=== PATIENT | male | born 1960 | race Caucasian/White ===

== ENCOUNTER 2020-11-22 04:18 | Outpatient (CLI) | payer OTHER, SELFPAY ==
[2020-11-22 12:39] LABS: HCT 46.5 % (40.0-50.0); MCH 32.6 pg (27.0-33.0); MCHC 34.4 % (32.0-36.0); MCV 94.7 fL (80-95); MPV 10.8 fL (8.0-11.0); Platelet Count 247 10^3/uL (130-400); RBC 4.91 10^6/uL (4.36-5.78); RDW 11.4 % (11.8-14.1); RDW-SD 39.5 fL
[2020-11-22 13:05] LABS: Hemoglobin A1C 5.4 % (<5.7)
[2020-11-22 13:29] LABS: ALT 67 U/L (16-63); AST 29 U/L (15-37); Albumin 3.8 g/dL (3.4-5.0); Alkaline Phosphatase 68 U/L (46-116); BUN 14 mg/dL (7-18); Bilirubin, Total 0.6 mg/dL (0.2-1.0); CREATININE 0.8 mg/dL (0.70-1.30); Calcium 8.7 mg/dL (8.5-10.1); Calculated LDL 155 mg/dL (<100); Chloride 105 mmol/L (98-107); Cholesterol 239 mg/dL (<200); Ferritin 250 ng/mL (26-388); Glucose 110 mg/dL (74-106); HDL Cholesterol 78 mg/dL (40-60); Potassium 4.3 mmol/L (3.5-5.1); Sodium 140 mmol/L (136-145); Total Protein 7.2 g/dL (6.4-8.2); Triglyceride 34 mg/dL (<150)
[2020-11-22 22:11] LABS: PSA, Screening 1.6 ng/mL (0.0-3.5)
[2020-11-23 09:42] LABS: Transferrin 200 mg/dL (201-352)
== END 2020-11-22 04:19 | disposition home or self-care (01) ==
PROVIDERS: PCP Neuromusculoskeletal Medicine & OMM; Visit Provider Neuromusculoskeletal Medicine & OMM
DX: Z00.00 Encounter for general adult medical examination without abnormal findings (principal); R10.9 Unspecified abdominal pain; E78.5 Hyperlipidemia, unspecified; M25.561 Pain in right knee; R73.9 Hyperglycemia, unspecified; Z82.49 Family history of ischemic heart disease and other diseases of the circulatory system; Z12.5 Encounter for screening for malignant neoplasm of prostate
CPT/HCPCS: 36415; 80053; 80061; 84153; 85027; 82728; 83036; 84466

== ENCOUNTER 2020-12-09 02:59 | Outpatient (CLI) | payer OTHER, SELFPAY ==
[2020-12-09 12:28] LABS: ESR 3 mm//hr (0-20)
[2020-12-09 16:47] LABS: CRP, High Sensitivity 0.94 mg/L (See Note)
[2020-12-10 09:09] LABS: Cyclic Citrullinated Peptide <2.5 U/mL (<5.0)
[2020-12-10 14:58] LABS: ANCA Interpretation Negative (Negative)
== END 2020-12-09 03:00 | disposition home or self-care (01) ==
LOC: LOS 02:59
PROVIDERS: PCP Neuromusculoskeletal Medicine & OMM; Visit Provider Neuromusculoskeletal Medicine & OMM
DX: M25.59 Pain in other specified joint (principal)
CPT/HCPCS: 36415; 85652; 86141; 86200; 86255

== ENCOUNTER 2021-01-25 14:39 | Outpatient (CLI) | payer OTHER, SELFPAY ==
--- NOTE | 2021-01-25 14:30 | DI.RAD_ITS ---
Exam(s) XR KNEE LT 3V AP,LAT,FANNY EXAM: XR KNEE LT 3V AP,LAT,FANNY CLINICAL HISTORY: KNEE PAIN TECHNIQUE: COMPARISON: CR XR KNEE RT 3V AP,LAT,FANNY from 01/25/2021 FINDINGS: Three views were obtained. Cartilaginous joint spaces appear fairly well maintained. Prominent supe rior patellar enthesophyte noted. No other significant bony abnormality seen. There is not appear t o be a significant joint effusion. IMPRESSION: RADIATION DOSE DELIVERED: Total DLP
--- NOTE | 2021-01-25 14:30 | DI.RAD_ITS ---
Exam(s) XR KNEE RT 3V AP,LAT,FANNY EXAM: XR KNEE RT 3V AP,LAT,FANNY CLINICAL HISTORY: KNEE PAIN TECHNIQUE: COMPARISON: No exams were available for comparison FINDINGS: Three views were obtained. Cartilaginous joint spaces appear fairly well maintained. There is a pro minent superior enthesophyte of the patella. There are prominent marginal osteophytes of the lateral patella. No other significant bony abnormality seen. There may be a small knee joint effusion. IMPRESSION: RADIATION DOSE DELIVERED: Total DLP
== END 2021-01-25 14:40 | disposition home or self-care (01) ==
LOC: DIORS 14:40
PROVIDERS: PCP Neuromusculoskeletal Medicine & OMM; Referring Provider Neuromusculoskeletal Medicine & OMM; Visit Provider Student in an Organized Health Care Education/Training Program
DX: M25.561 Pain in right knee (principal); M25.562 Pain in left knee
CPT/HCPCS: 73562

== ENCOUNTER → 2022-05-18 15:13 | Outpatient (CLI) | payer OTHER, SELFPAY ==
--- NOTE | 2022-05-18 | DI.RAD_ITS ---
Exam(s) XR RIBS RT PA CHEST 3V EXAM: XR RIBS RT PA CHEST 3V CLINICAL HISTORY: INJURY T14.90XA BLUNT FORCE INJURY TO RT RIBS TECHNIQUE: 2D digital imaging was performed. PA and lateral chest and four views of the right ribs COMPARISON: No exams were available for comparison FINDINGS: HEART: Normal size. Aorta: PULMONARY VASCULATURE: Normal. LUNGS: Clear. PLEURAL SPACE: No pleural effusion or pneumothorax. BONE:No evidence of rib fracture. There are mild degenerative changes in the right shoulder. Mild-t o-moderate osteophytes are noted in the thoracic spine. No compression fracture. IMPRESSION: No acute abnormality. DATA REPOSITORY: RADIATION DOSE DELIVERED:
== END ==
PROVIDERS: PCP Neuromusculoskeletal Medicine & OMM; Visit Provider Neuromusculoskeletal Medicine & OMM
DX: T14.90XA Injury, unspecified, initial encounter (principal)
CPT/HCPCS: 71046; 71100

== ENCOUNTER 2023-01-25 02:13 | Outpatient (CLI) | payer OTHER, SELFPAY ==
--- NOTE | 2023-01-25 07:15 | DI.MRI_ITS ---
Exam(s) MR LOWER JOINT LT WO EXAM: MR LOWER JOINT LT WO CLINICAL HISTORY: L knee injury,tendinitis lt quadriceps tendon, m76.892 TECHNIQUE: Multiplanar multisequence MRI of the knee was performed. COMPARISON: CR XR KNEE LT 3V AP,LAT,FANNY from 01/25/2021 FINDINGS: EFFUSION: There is mild amount of increased joint fluid. No large joint effusion. No Saavedra cyst in the popliteal fossa. MARROW:There is mild edema in the patella noted. No obvious fracture lines. There are no significan t osseous lesions. PATELLOFEMORAL COMPARTMENT: There is partial tearing of the quadriceps tendon just above the patella insertion.. Also some tearing at anterior patellar insertion level. The patellar ligament is intact . There is subcutaneous edema anterior to the patella and patellar ligament. Also some signal abnor mality in the superior aspect of the Hoffa fat pad, laterally. There is no significant thinning of the retropatellar cartilage. No evidence of fissure nor signific ant chondral defect. No osteochondral defect at this level.There is no intraosseous signal to sugges t recent patellar dislocation. There are no patellar retinacular tears. CRUCIATE LIGAMENTS: The anterior cruciate ligament is intact.The posterior cruciate ligament is intac t. MEDIAL COMPARTMENT/MEDIAL MENISCUS: There are no tears of the medial meniscus evident.. There are no chondral defects, osteochondral defects, subarticular marrow edema, nor osteophytes evid ent. MEDIAL COLLATERAL LIGAMENT: Intact LATERAL COMPARTMENT/LATERAL MENISCUS: There is no evidence of lateral meniscal tear.There are no carmine dral defects, osteochondral defects, subarticular marrow edema, nor osteophytes evident. ILIOTIBIAL BAND: Intact LATERAL COLLATERAL LIGAMENT COMPLEX: The fibular collateral ligament is intact. The biceps femoris t endon is intact.Popliteus muscle and tendon are intact. IMPRESSION: 1. Main findings here are anteriorly where there is high-grade partial tearing of the quadriceps tend on just above the patella. Edema also extends anterior to the patella and there is also intraosseous edema in the patella but no distinct fracture lines. 2. There is subcutaneous edema anterior to the patella and patellar ligament but no evidence of tear of the patellar ligament nor tendinitis signal. 3. No evidence of meniscal nor cruciate ligament tears. 4. No collateral ligament tears. Small joint effusion. No Saavedra cyst. DATA REPOSITORY:
== END 2023-01-25 02:33 ==
LOC: DI 02:13
PROVIDERS: PCP Neuromusculoskeletal Medicine & OMM; Visit Provider Student in an Organized Health Care Education/Training Program
DX: S76.101A Unspecified injury of right quadriceps muscle, fascia and tendon, initial encounter; R22.42 Localized swelling, mass and lump, left lower limb; X58.XXXA Exposure to other specified factors, initial encounter
CPT/HCPCS: 73721

== ENCOUNTER 2023-02-16 01:03 | Outpatient (CLI) | payer OTHER, SELFPAY ==
--- NOTE | 2023-02-16 08:30 | DI.MRI_ITS ---
Exam(s) MR LOWER JOINT RT WO EXAM: MR LOWER JOINT RT WO CLINICAL HISTORY: R KNEE PAIN? TENDON RUPTURE, TENDINITIS BOTH QUAD TENDONS, M76.891, M76.892. TECHNIQUE: Multiplanar multisequence MRI was performed. COMPARISON: CR XR KNEE RT 3V AP,LAT,FANNY from 01/25/2021 FINDINGS: BONES: There is no fracture or contusion pattern. JOINTS: Articular cartilage is unremarkable. No effusion is present. TENDONS: Extensor mechanism: There is mild increased signal seen at the quadriceps tendon in the insertion sit e. Medial retinaculum: Unremarkable. Lateral retinaculum: Unremarkable. Popliteus: Unremarkable. MUSCLES: Unremarkable. MENISCI: The medial meniscus is unremarkable. The lateral meniscus is unremarkable. SOFT TISSUES: Unremarkable. LIGAMENTS: Anterior Cruciate: There is somewhat hyperintense signal within the ACL which may represent a sprain. No evidence of a full-thickness tear is seen. Posterior Cruciate: Unremarkable. Medial Collateral:Unremarkable. Lateral Collateral: Unremarkable. OTHER: IMPRESSION: 1. Mild increased signal seen in the quadriceps tendon at its insertion site which may represent tend initis. Partial tear cannot be entirely excluded. 2. ACL sprain without evidence of a tear. DATA REPOSITORY:
== END 2023-02-16 01:23 ==
LOC: DI 01:03
PROVIDERS: PCP Neuromusculoskeletal Medicine & OMM; Visit Provider Student in an Organized Health Care Education/Training Program
DX: S83.511A Sprain of anterior cruciate ligament of right knee, initial encounter (principal); X58.XXXA Exposure to other specified factors, initial encounter
CPT/HCPCS: 73721

== ENCOUNTER 2024-04-17 14:49 | Outpatient (CLI) | payer OTHER, SELFPAY ==
--- NOTE | 2024-04-17 14:45 | DI.RAD_ITS ---
Exam(s) XR FINGER LT INDEX EXAM: XR FINGER LT INDEX EXAM DATE/TIME: CLINICAL HISTORY: left index finger crush injury, S67.191A. TECHNIQUE: 2D digital imaging was performed of the left finger. Three views were obtained. PA/AP, oblique, and lateral views were obtained. COMPARISON: None. FINDINGS: BONES: There is an acute nondisplaced fracture involving the terminal tuft. There is a well corticat ed osseous density seen at the radial aspect of the base of the distal phalanx which is likely chroni c. On the sagittal view there is a well corticated osseous density posterior to the head of the midd le phalanx which is likely chronic. No bony destructive lesion is seen. JOINTS: No dislocation is present. SOFT TISSUE: Soft tissue swelling of the finger is noted. IMPRESSION: Acute nondisplaced terminal tuft fracture. DATA REPOSITORY: RADIATION DOSE DELIVERED:
--- OUTSIDE RECORDS SUMMARY | 2024-04-17 14:52 | XMS_ITS | Encounter Summary ---
Author Organization [facility] Address [address] [place] [id number] Care Team Providers Care Iv Therapy Nurse Name Role Phone Unknown, Provider Primary Care Provider Encounter Details Date Type Department Care Team (Latest Contact Info) Description 12/05/2018 8:51 EDT - 12/05/2018 23:59 EDT Hospital Encounter [address] [address] Unknown, Provider, Discharge Disposition: Home or Self Care Social History Tobacco Use Types Packs/Day Years Used Date Smoking Tobacco: Never Assessed Sex and Gender Information Value Date Recorded Sex Assigned at Not on file Gender Identity Not on file Sexual Orientation Not on file documented as of this encounter Discharge Disposition Disposition Code Departure Means Destination Home or Self Longterm documented in this encounter Plan of Treatment Not on file documented as of this encounter Visit Diagnoses Not on filedocumented in this encounter Care Teams Iv Therapy Nurse Relationship Specialty Start Date End Date Unknown, Provider, PCP - General 12/05/18 documented as of this encounter
--- OUTSIDE RECORDS SUMMARY | 2024-04-17 14:52 | XMS_ITS | Encounter Summary ---
Author Organization [facility] Address [address] [place] [address] Care Team Providers Care Power Generation Turbine Room Operator Name Role Phone Unknown, Provider Primary Care Provider [phone] Encounter Details Date Type Department Care Team (Late st Contact Info) Description 11/22/2020 Lab Requisition [facility] Pathology & Laboratory Medicine - [facility] [address] [place] [address] Outr Resulting Lab, Provider Social History Tobacco Use Types Packs/Day Years Used Date Smoking Tobacco: Never Assessed Interpersonal Safety Answer Date Record ed Physically Hurt Never 03/29/2020 Verbally Threaten Not on file 03/29/2020 Sex and Gender Information Value Date Recorded Sex Assigned at Not on file Gender Identity Not on file Sexual Orientation Not on file documented as of this encounter Plan of Treatment Not on file documented as of this encounter Procedures Procedure Name Priority Date/Time Associated Diagnosis Comments TRANSFERRIN Routine 11/22/2020 8:36 EDT PSA TOTAL, DIAGNOSTIC Routine 11/22/2020 8:36 EDT documented in this encounter Results * PSA TOTAL, DIAGNOSTIC (11/22/2020 8:36 EDT) PSA 1.6 0.0 - 3.5 ng/mL 11/22/2020 22:08 EDT [facility] Blood VENOUS BLOOD / Unknown 11/22/2020 8:36 EDT 11/22/2020 21:14 EDT Narrative [facility] - 11/22/2020 22:08 EDT NOTE: Serum PSA concentration should not be interpreted as absolute evidence for the presence or absence of malignant disease. Assayed on Siemens ADVIA Centaur XPT using chemiluminescent technology.??Values obtained by using different assay methods cannot be used interchangeably. Provider Outr Resulting Lab CHEMISTRY & BLOOD GAS ORDERABLES Performing Organization Address City/[facility]/ZIP Co de Phone Number [facility] [address] [place] [address] * (ABNORMAL) TRANSFERRIN (11/22/2020 8:36 EDT) Transferrin 200(L) 201 - 352 mg/dL 11/23/2020 9:38 EDT [facility] Blood VENOUS BLOOD / Unknown 11/22/2020 8:36 EDT 11/22/2020 21:14 EDT Provider Outr Resulting Lab CHEMISTRY & BLOOD GAS ORDERABLES Performing Organization Address [facility] de Phone Number [facility] [address] [place] [address] documented in this encounter Visit Diagnoses Not on filedocumented in this encounter Care Teams Power Generation Turbine Room Operator Relationship Specialty Start Date End Date Unknown, Provider, PCP - General 12/05/18 documented as of this encounter
--- OUTSIDE RECORDS SUMMARY | 2024-04-17 14:52 | XMS_ITS | Referral Summary ---
Author Organization [facility] Address [address] [place] [address] Care Team Providers Care Remote Sensing Specialist Name Role Phone Unknown, Provider Primary Care Provider [phone] Social History Tobacco Use Types Packs/Day Years Used Date Smoking Tobacco: Never Assessed Interpersonal Safety Answer Date Record ed Physically Hurt Never 03/29/2020 Verbally Threaten Not on file 03/29/2020 Sex and Gender Information Value Date Recorded Sex Assigned at Not on file Gender Identity Not on file Sexual Orientation Not on file Plan of Treatment Not on file Care Teams Remote Sensing Specialist Relationship Specialty Start Date End Date Unknown, Provider, PCP - General 12/05/18
--- OUTSIDE RECORDS SUMMARY | 2024-04-17 14:52 | XMS_ITS | Encounter Summary ---
Author Organization [facility] Address [address] [place] [address] Care Team Providers Care Electronic Die Maker Name Role Phone Unknown, Provider Primary Care Provider Encounter Details Date Type Department Care Team (Late st Contact Info) Description 12/09/[address] [facility] Pathology & Laboratory Medicine - [facility] [address] [place] [address] Outr Resulting Lab, Provider Social History Tobacco [...] Procedure Name Priority Date/Time Associated Diagnosis Comments CCP ANTIBODIES Routine 12/09/2020 10:02 EDT ANCA, IFA Routine 12/09/2020 10:02 EDT HIGH SENSITIVITY C-REACTIVE PROTEIN (CARDIOVASCULAR DISEASE) Routine 12/09/2020 10:02 EDT documented in this encounter Results * ANCA, IFA (12/09/2020 10:02 EDT) Lab ANCA Interpretation Negative Negative 12/10/2020 14:53 EDT [facility] Comment: No titer performed, ANCA Screen is negative. Results were obtained with the INOVA NOVA Lite ANCA kit by indirect immunofluorescence. Blood VENOUS BLOOD / Unknown 12/09/2020 10:02 EDT 12/09/2020 16:23 EDT Provider Outr Resulting Lab IMMUNOLOGY A ND SEROLOGY ORDERABLES Performing Organization Address City/[facility] Co de Phone Number [facility] [address] [place] [address] * CCP ANTIBODIES (12/09/2020 10:02 EDT) Pathologist [facility] CCP Antibodies <2.5 <5.0 U/mL 12/10/2020 9:05 EDT [facility] Blood VENOUS BLOOD / Unknown 12/09/2020 10:02 EDT 12/09/2020 16:23 EDT Provider Outr Resulting Lab IMMUNOLOGY A ND SEROLOGY ORDERABLES Performing Organization Address [facility] de Phone Number [facility] [address] [place] [address] * HIGH SENSITIVITY C-REACTIVE PROTEIN (CARDIOVASCULAR DISEASE) (12/09/2020 10:02 EDT) [facility] High Sensitivity CRP 0.94 See Note mg/L 12/09/2020 16:42 EDT [facility] Comment: Reference Range: ??Source: [employer] [place] [employer] Clinical Practice Recommendations, 2003 ??Low Risk: ? <1.0 mg/L ??Average Risk: ?? 1.0 - 3.0 mg/L ??High Risk: ?>3.0 mg/L ??Indeterminate*: >10.0 mg/L ??*May be an indication of another source of inflammation or infection Blood VENOUS BLOOD / Unknown 12/09/2020 10:02 EDT 12/09/2020 16:23 EDT Provider Outr Resulting Lab CHEMISTRY & BLOOD GAS ORDERABLES Performing Organization Address [facility] Co de Phone Number [facility] [address] [place] [address] documented in this encounter Visit Diagnoses Not on filedocumented in this encounter Care Teams Electronic Die Maker Relationship Specialty Start Date End Date Unknown, Provider, PCP - General 12/05/18 documented as of this encounter
--- OUTSIDE RECORDS SUMMARY | 2024-04-17 14:52 | XMS_ITS | Clinical Summary ---
Author Organization [facility] Address [address] [place] [address] Care Team Providers Care Jewel Hole Cornerer Name Role Phone Unknown, Provider Primary Care Provider [phone] Social History Tobacco Use Types Packs/Day Years Used Date Smoking Tobacco: Never Assessed Interpersonal Safety Answer Date Record ed Physically Hurt Never 03/29/2020 Verbally Threaten Not on file 03/29/2020 Sex and Gender Information Value Date Recorded Sex Assigned at Not on file Gender Identity Not on file Sexual Orientation Not on file Plan of Treatment Health Maintenance Due Date Last Done Comments Hepatitis C Screen 1960 RSV Immunization ( o r 60+ Years) (1 - 1-dose 60+ series) 2021 COVID-19 Vaccine ( season) 2023 Care Teams Jewel Hole Cornerer Relationship Specialty Start Date End Date Unknown, Provider, PCP - General 12/05/18
--- OUTSIDE RECORDS SUMMARY | 2024-04-17 14:53 | XMS_ITS | Encounter Summary ---
Author Organization [facility] Address [address] [place] [address] Care Team Providers Care Magnet Placer Name Role Phone Unknown, Provider Primary Care Provider [phone] Encounter Details Date Type Department Care Team (Late st Contact Info) Description 12/05/2018 Results Only [facility] [phone] Casey Syed MD [address] [place] [phone] Social History Tobacco Use Types Packs/Day Years Used Date Smoking Tobacco: Never Assessed Sex and Gender Information Value Date Recorded Sex Assigned at Not on file Gender Identity Not on file Sexual Orientation Not on file documented as of this encounter Plan of Treatment Not on file documented as of this encounter Procedures Procedure Name Priority Date/Time Associated Diagnosis Comments SURGICAL PATHOLOGY Routine 12/05/2018 21 :49 EDT documented in this encounter Results * SURGICAL PATHOLOGY (12/05/2018 21:49 EDT) Pathology Report: SURGICAL PATHOLOGY REPORT Reports generated via electronic interface contain original data; however they are lacking the format of the original report. Caution should be taken when reading/interpret ing unformatted reports. Name: ? DENA REICH ? Accession #: ? [id number] ? : ? 1960 (Age: 58) ??M ? Collect Date: ? 12/05/2018 ? Location: ? [facility] ? Receive Date: ? 12/05/2018 ? Provider: CASEY SYED MD Copy to: ? Final Pathologic Diagnosis: A. COLON, SPLENIC FLEXURE, POLYP, BIOPSY: - ??Fragments of tubular adenoma. Document reviewed and electronically signed by: ANNA HAMILTON MD Report ??Date: 12/10/2018 09:52 By the signature above, the attending physician certifies that he/she has personally conducted a gross and/or microscopic examination of the described specimens and rendered or confirmed the above diagnosis. Specimen(s) Received: Splenic flexure polyp Clinical History: Not listed Gross Description: ? Received in formalin labelled with proper patient identification (initials W, D) and splenic flexure polyp are two irregular to polypoid tissues, 0.2 x 0.1 x 0.1 cm in 0.5 x 0.3 x 0.3 cm. Entirely submitted in 1. ANDREAS Posey (ASCP) 12/06/2018 7:51 AM End of Report [facility] 12/05/2018 21:4 9 EDT 12/05/2018 21:49 EDT Casey Syed MD PATHOLOGY ORDERABLES [facility] [address] [place] [address] documented in this encounter Visit Diagnoses Not on filedocumented in this encounter Care Teams Magnet Placer Relationship Specialty Start Date End Date Unknown, Provider, PCP - General 12/05/18 documented as of this encounter
== END 2024-04-17 15:09 ==
LOC: DI 14:50
PROVIDERS: PCP Nurse Practitioner Family; Visit Provider Nurse Practitioner Family
DX: S67.191A Crushing injury of left index finger, initial encounter (principal); S62.641A Nondisplaced fracture of proximal phalanx of left index finger, initial encounter for closed fracture; W23.0XXA Caught, crushed, jammed, or pinched between moving objects, initial encounter
CPT/HCPCS: 73140

== ENCOUNTER 2024-07-18 16:09 | Outpatient (REF) | payer OTHER, SELFPAY ==
--- OUTSIDE RECORDS SUMMARY | 2024-07-18 16:11 | XMS_ITS | Referral Summary ---
Author Organization [facility] Address [address] [place] [address] Care Team Providers Care Full Charge Bookkeeper Name Role Phone Unknown, Provider MD Primary Care Provider Unava ilable Social History Tobacco Use Types Packs/Day Years Used Date Smoking Tobacco: Never Assessed Interpersonal Safety Answer Date Record ed Physically Hurt Never 03/29/2020 Verbally Threaten Not on file 03/29/2020 Sex and Gender Information Value Date Recorded Sex Assigned at Not on file Legal Sex Male 15:58 EDT Gender Identity Not on file Sexual Orientation Not on file Plan of Treatment Not on file Care Teams Full Charge Bookkeeper Relationship Specialty Start Date End Date Unknown, Provider, PCP - General 12/05/18
--- OUTSIDE RECORDS SUMMARY | 2024-07-18 16:11 | XMS_ITS | Encounter Summary ---
Author Organization [facility] Address [address] [place] [address] Care Team Providers Care Battery Inspector Name Role Phone Unknown, Provider Primary Care Provider Unava ilable Encounter Details Date Type Department Care Team (Latest Contact Info) Description 12/05/2018 8:51 EDT - 12/05/2018 23:59 EDT Hospital Encounter [address] [address] Unknown, Provider, Discharge Disposition: Home or Self [...] Code Departure Means Destination Home or Self Alf documented in this encounter Plan of Treatment Not on file documented as of this encounter Visit Diagnoses Not on filedocumented in this encounter Care Teams Battery Inspector Relationship Specialty Start Date End Date Unknown, Provider, PCP - General 12/05/18 documented as of this encounter
--- OUTSIDE RECORDS SUMMARY | 2024-07-18 16:11 | XMS_ITS | Encounter Summary ---
Author Organization [facility] Address [address] [place] [address] Care Team Providers Care Blockmason Name Role Phone Unknown, Provider Primary Care Provider Unava ilable Encounter Details Date Type Department Care Team (Late st Contact Info) Description 11/22/2020 Lab Requisition [facility] Pathology & Laboratory Medicine - [facility] [address] [place] [address] Outr Resulting Lab, Provider Social History Tobacco [...] 0.0 - 3.5 ng/mL 11/22/2020 22:08 EDT [facility] Blood VENOUS BLOOD / Unknown 11/22/2020 8:36 EDT 11/22/2020 21:14 EDT Narrative [facility] - 11/22/2020 22:08 EDT NOTE: Serum PSA concentration should not be interpreted as absolute evidence for the presence or absence of malignant disease. Assayed on Siemens ADVIA Centaur XPT using chemiluminescent technology.??Values obtained by using different assay methods cannot be used interchangeably. us Provider Outr Resulting Lab CHEMISTRY & BLOOD GA S ORDERABLES Final Result Performing Organization Address [facility] Co de Phone Number [facility] [address] [place] [address] * (ABNORMAL) TRANSFERRIN (11/22/2020 8:36 EDT) Transferrin 200(L) 201 - 352 mg/dL 11/23/2020 9:38 EDT [facility] Blood VENOUS BLOOD / Unknown 11/22/2020 8:36 EDT 11/22/2020 21:14 EDT us Provider Outr Resulting Lab CHEMISTRY & BLOOD GA S ORDERABLES Final Result Performing Organization Address [facility] de Phone Number [facility] [address] [place] [address] documented in this encounter Visit Diagnoses Not on filedocumented in this encounter Care Teams Blockmason Relationship Specialty Start Date End Date Unknown, Provider, PCP - General 12/05/18 documented as of this encounter
--- OUTSIDE RECORDS SUMMARY | 2024-07-18 16:11 | XMS_ITS | Clinical Summary ---
Author Organization [facility] Address [address] [place] [address] Care Team Providers Care System Designer Name Role Phone Unknown, Provider MD Primary [...] Last Done Comments Hepatitis C Screen 1960 COVID-19 Vaccine ( - 2023- season) 2024 RSV Immunization ( o r 60+ Years) (1 - 1-dose 75+ series) 2036 Care Teams System Designer Relationship Specialty Start Date End Date Unknown, Provider, PCP - General 12/05/18
--- OUTSIDE RECORDS SUMMARY | 2024-07-18 16:11 | XMS_ITS | Encounter Summary ---
Author Organization [facility] Address [address] [place] [address] Care Team Providers Care Manager Nursing Name Role Phone Unknown, Provider Primary Care Provider Natalia christiansen Encounter Details Date Type Department Care Team (Late st Contact Info) Description 12/09/2020 Lab Requisition [facility] Pathology & Laboratory Medicine - [facility] [address] [place] [address] Outr Resulting Lab, Provider Social History Tobacco [...] ANCA Interpretation Negative Negative 12/10/2020 14:53 EDT [facility] Comment: No titer performed, ANCA Screen is negative. Results were obtained with the [employer] NOVA Lite ANCA kit by indirect immunofluorescence. Blood VENOUS BLOOD / Unknown 12/09/2020 10:02 EDT 12/09/2020 16:23 EDT us Provider Outr Resulting Lab IMMUNOLOGY AND SEROL OGY ORDERABLES Final Result [facility] [address] [place] [address] * CCP ANTIBODIES (12/09/2020 10:02 EDT) CCP Antibodies <2.5 <5.0 U/mL 12/10/2020 9:05 EDT [facility] Blood VENOUS BLOOD / Unknown 12/09/2020 10:02 EDT 12/09/2020 16:23 EDT Provider Outr Resulting Lab IMMUNOLOGY AND SEROL OGY ORDERABLES Final Result Performing Organization Address [facility] Co de Phone Number [facility] [address] [place] [address] * HIGH SENSITIVITY C-REACTIVE PROTEIN (CARDIOVASCULAR DISEASE) (12/09/2020 10:02 EDT) Pathologist [facility] High Sensitivity CRP 0.94 See Note mg/L 12/09/2020 16:42 EDT [facility] Comment: Reference Range: ??Source: [employer] [place] [employer] Clinical Practice Recommendations, 2003 ??Low Risk: ? <1.0 mg/L ??Average Risk: ?? 1.0 - 3.0 mg/L ??High Risk: ?>3.0 mg/L ??Indeterminate*: >10.0 mg/L ??*May be an indication of another source of inflammation or infection Blood VENOUS BLOOD / Unknown 12/09/2020 10:02 EDT 12/09/2020 16:23 EDT us Provider Outr Resulting Lab CHEMISTRY & BLOOD GA S ORDERABLES Final Result Performing Organization Address [facility] Co de Phone Number [facility] [address] [place] [address] documented in this encounter Visit Diagnoses Not on filedocumented in this encounter Care Teams Manager Nursing Relationship Specialty Start Date End Date Unknown, Provider, PCP - General 12/05/18 documented as of this encounter
--- OUTSIDE RECORDS SUMMARY | 2024-07-18 16:11 | XMS_ITS | Encounter Summary ---
Author Organization [facility] Address [address] [place] [address] Care Team Providers Care Director Video Name Role Phone Unknown, Provider Primary Care Provider Unava ilable Encounter Details Date Type Department Care Team (Late st Contact Info) Description 12/05/[address] [facility] [phone] Casey Syed MD [address] [place] [phone] Social History Tobacco Use Types Packs/Day Years [...] ? DENA REICH ? Accession #: ? [id number] ? : ? 1960 (Age: 58) ??M [...] (ASCP) 12/06/2018 7:51 AM End of Report [facility] 12/05/2018 21:4 9 EDT 12/05/2018 21:49 EDT us Casey Syed MD PATHOLOGY ORDERABLES F inal Result [facility] [address] [place] [address] documented in this encounter Visit Diagnoses Not on filedocumented in this encounter Care Teams Director Video Relationship Specialty Start Date End Date Unknown, Provider, PCP - General 12/05/18 documented as of this encounter
== END 2024-07-18 16:10 | disposition home or self-care (01) ==
LOC: LBN 16:09
PROVIDERS: PCP Nurse Practitioner Family; Visit Provider Nurse Practitioner Family
DX: J02.9 Acute pharyngitis, unspecified (principal); Z00.00 Encounter for general adult medical examination without abnormal findings; Z11.59 Encounter for screening for other viral diseases; Z12.5 Encounter for screening for malignant neoplasm of prostate; F41.1 Generalized anxiety disorder; F41.0 Panic disorder [episodic paroxysmal anxiety]; Z76.89 Persons encountering health services in other specified circumstances; I10 Essential (primary) hypertension
CPT/HCPCS: 87070

== ENCOUNTER 2024-09-26 18:05 | Outpatient (CLI) | payer OTHER, SELFPAY ==
--- NOTE | 2024-09-26 18:13 | DI.RAD_ITS ---
Exam(s) XR CHEST 2V PA LATERAL EXAM: XR CHEST 2V PA LATERAL CLINICAL HISTORY: eval pna. TECHNIQUE: 2D digital imaging was performed. COMPARISON: CR XR RIBS RT PA CHEST 3V from 05/18/2022 FINDINGS: 2 views: Heart size is normal. The mediastinum is not widened. Lungs are clear. No infiltrates nor pleural effusions. No pneumothorax. No fractures. IMPRESSION: No acute pulmonary findings.No significant change compared to chest x-ray of April 2022. DATA REPOSITORY: RADIATION DOSE DELIVERED:
== END 2024-09-26 18:25 ==
PROVIDERS: PCP Nurse Practitioner Family; Visit Provider Nurse Practitioner Family
DX: R05.9 Cough, unspecified (principal)
CPT/HCPCS: 71046

== ENCOUNTER 2025-02-18 01:30 | Outpatient (CLI) | payer OTHER, SELFPAY ==
[2025-02-18 09:28] LABS: Abs Immature Grans 0.04 10^3/uL (0.0-0.06); Absolute Basophil Count 0.04 10^3/uL (0.0-0.2); Absolute Eosinophil Count 0.32 10^3/uL (0.0-0.7); Absolute Lymphocyte Count 1.45 10^3/uL (1.2-3.4); Absolute Monocyte Count 0.73 10^3/uL (0.1-0.8); Absolute Neutrophil Count 3.72 10^3/uL (1.2-6.7); Basophils % 0.6 %; Eosinophils % 5.1 %; HCT 46.1 % (40.0-50.0); Immature Grans % 0.6 %; MCH 31.9 pg (27.0-33.0); MCHC 34.7 % (32.0-36.0); MCV 92 fL (80-95); MPV 10.2 fL (8.0-11.0); Monocytes % 11.6 %; Neutrophils % 59.1 %; Platelet Count 255 10^3/uL (130-400); RBC 5.01 10^6/uL (4.36-5.78); RDW 11.5 % (11.8-14.1); RDW-SD 38.8 fL
[2025-02-18 10:16] LABS: Hemoglobin A1C 5.3 % (<5.7)
[2025-02-18 10:24] LABS: ALT 43 U/L (16-63); AST 23 U/L (15-37); Albumin 3.9 g/dL (3.4-5.0); Alkaline Phosphatase 78 U/L (46-116); Anion Gap 8.2 mmol/L (3-11); BUN 13 mg/dL (7-18); Bilirubin, Total 0.9 mg/dL (0.2-1.0); CO2 28.8 mmol/L (21.0-32.0); CREATININE 0.8 mg/dL (0.70-1.30); Calcium 9.1 mg/dL (8.5-10.1); Chloride 104 mmol/L (98-107); Estimated GFR 99.44 (mL/min/1.73m2); Glucose 109 mg/dL (74-106); Potassium 4.1 mmol/L (3.5-5.1); Sodium 141 mmol/L (136-145); TSH (W/Ref FT4) 1.64 uIU/mL (0.36-3.74); Total Protein 7.7 g/dL (6.4-8.2)
[2025-02-18 18:50] LABS: PSA, Screening 1.6 ng/mL (<=4.5)
[2025-02-19 10:25] LABS: Hepatitis C Ab w Rflx HCV PCR Negative (Negative)
[2025-02-19 10:37] LABS: HBs Antibody, Quant <3.1 mIU/mL (See Note); Hep B Surface Ab Negative (See Note); Hepatitis B Core Antibody Negative (Negative); Hepatitis B Surface Antigen Negative (Negative)
[2025-02-19 10:42] LABS: HIV-1/2 Ag & Ab Screen Negative (Negative)
== END 2025-02-18 01:31 | disposition home or self-care (01) ==
LOC: LBO 01:30
PROVIDERS: PCP Nurse Practitioner Family; Visit Provider Nurse Practitioner Family
DX: Z12.5 Encounter for screening for malignant neoplasm of prostate (principal); Z00.00 Encounter for general adult medical examination without abnormal findings; Z11.59 Encounter for screening for other viral diseases; Z11.4 Encounter for screening for human immunodeficiency virus [HIV]
CPT/HCPCS: 36415; 80053; 84153; 86704; 86706; 86803; 87340; 87389; 83036; 84443; 85025